=== PATIENT | male | born 1935 | race Caucasian/White ===

== ENCOUNTER 2016-10-03 11:56 | Day surgery (SDC) | payer MEDICARE, MEDICAID ==
[~2016-10-03] VITALS: Ht 152.4 cm; Wt 50.0 kg
[~2016-10-03 11:56] MED LIST: Acetaminophen PO; CALC-756 PO; CHOL100043 PO; METH850P PO; NYST15CR TP; PROP1DRO BOTH_EYES; SENN-133 PO; Sodium Chloride LOK Flush 10 mL Syringe IV PRN; fentaNYL-PF 50 mCg/mL 2 mL Inj IVPUSH PRN
[2016-10-03 12:20] VITALS: BP 141/73; PULSE 91; RESP 14; O2SAT 98
[2016-10-03] MEDS: 0.9% Sodium Chloride 1,000 ML IV PRN ×2 (13:06→13:27)
[2016-10-03 13:39] VITALS: BP 118/64; PULSE 76; RESP 15; O2SAT 99
[2016-10-03 13:48] VITALS: BP 109/64; PULSE 67; RESP 15; O2SAT 95
--- NOTE | 2016-10-03 14:02 | ENDO ---
[address] [address] ENDOSCOPY PROCEDURE PATIENT: JENNIFER BRENNAN : 1935 MR#: [id number] ADMIT: 10/03/2016 JOB ID: [id number] DATE OF SERVICE: 10/03/2016 PRIMARY PROVIDER: Sindy Mcadams DO. PROCEDURE: Colonoscopy. INDICATIONS: An 81-year-old male with a personal history of adenomatous colon polyp, returning for surveillance. EQUIPMENT: [employer]. SEDATION: 1. Versed 2 mg. 2. Fentanyl 37.5 mcg. COMPLICATIONS: None identified. BOWEL PREPARATION: Fair, adequate exam. PROCEDURE INFORMATION: After the risks and benefits were explained, written and verbal informed consent was obtained. The patient was brought into the endoscopy suite and placed into the left lateral decubitus position. Sedation was achieved using the above-stated medications with the addition of oxygen via nasal cannula. A digital rectal examination was accomplished and did not elicit any obvious anorectal pathology. The scope was introduced into the rectum and advanced to the cecum as identified by the appendiceal orifice and ileocecal valve. The scope was slowly withdrawn to carefully examine the mucosa for any defects or lesions. Multiple direct views were made through the dentate line for exclusion of pathology. The colon was decompressed. The scope removed from the patient who tolerated the procedure well. FINDINGS: No significant polyps, mass lesions, or inflammatory features identified throughout. Mild diverticulosis was seen in the left colon. ENDOSCOPIC DIAGNOSES: 1. Diverticulosis. 2. Otherwise visually unremarkable colonoscopy to cecum. RECOMMENDATIONS: Surveillance colonoscopy would not be required at this point. Follow up in GI on a p.r.n. basis.
== END 2016-10-03 23:59 | disposition home or self-care (01) ==
LOC: END 11:56
PROVIDERS: ATTEND Internal Medicine Gastroenterology
DX: Z12.11 Encounter for screening for malignant neoplasm of colon (principal); K57.30 Diverticulosis of large intestine without perforation or abscess without bleeding; Z86.010 Personal history of colon polyps; K21.9 Gastro-esophageal reflux disease without esophagitis; M81.0 Age-related osteoporosis without current pathological fracture; E55.9 Vitamin D deficiency, unspecified; M25.552 Pain in left hip; M40.209 Unspecified kyphosis, site unspecified; H40.9 Unspecified glaucoma; Z87.891 Personal history of nicotine dependence
CPT/HCPCS: G0105; G0500; J2250; J3010; J7030

== ENCOUNTER 2017-03-03 10:58 | Inpatient (IN) | payer MEDICARE, MEDICAID ==
[~2017-03-03] VITALS: Ht 152.4 cm; Wt 50.3 kg
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
[~2017-03-03 10:58] MED LIST changes: -Sodium Chloride LOK Flush 10 mL Syringe IV PRN; -fentaNYL-PF 50 mCg/mL 2 mL Inj IVPUSH PRN
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
[2017-03-03 11:25] LABS: BASOPHILS % (AUTO) 0.9 % (0-3); EOSINOPHILS % (AUTO) 1.6 % (0-5); MONOCYTES % (AUTO) 5.9 % (4-12); Mean Corpuscular Hemoglobin 31.4 pg (27.0-35.0); Mean Corpuscular Volume 97.2 fL (81-100); Platelet Count 242 bil/L (150-400)
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
[2017-03-03 11:40] LABS: INR 0.94 ratio
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
--- NOTE | 2017-03-03 12:01 | ABG ---
DateTimeAnalyzed 11:51:52 -_ pH ____7.377 - 7.350 7.450 pCO2 ___35.4__ -mmHg 35.0 45.0 pO2 121 -mmHg 69.0 116 HCO3- ___20.8__ -mmol/L 22.0 26.0 ABE ___-4.0__ -mmol/L -2.0 2.0 tHb ___11.9__ -g/dL 12.0 18.0 O2Hb ___98.7__ -% COHb ____1.6__ -% 0.0 1.5 MetHb ____0.0__ -% 0.4 1.5 FIO2 __100.0__ -% Drawn By rs - Date/Time Notified____ 12:01:00 -_ Oxygen Device 1 NON RE-JESIKA - Notified By rs - Notified Whom __OKELLEY - K+ ____4.3__ -mmol/L 3.5 5.0
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
[2017-03-03 12:05] LABS: Magnesium 2.3 mg/dL (1.6-2.6)
[2017-03-03] MEDS ORDERED: Ondansetron 2 mg/mL 2 mL Inj IVPUSH PRN ×2 (12:30→12:50)
[2017-03-03] MEDS ORDERED: Lactated Ringer's 1,000 ML IV SCH (12:30)
[2017-03-03] MEDS ORDERED: Polyethylene Glycol (PEG) 17 Gm Powder PO PRN (12:50)
[2017-03-03] MEDS ORDERED: Alum-Mag Hydrox-Simeth 30 mL Suspension PO PRN (12:50)
--- NOTE | 2017-03-03 13:14 | DRSVH ---
PROCEDURE: X-RAY CHEST ONE VIEW, PORTABLE ([id number]) INDICATIONS: 81 year-old male with chest tube placement. TECHNIQUE: One view of the chest was acquired. COMPARISON: [facility], CT, CT CHEST ABD PELVIS W CON, 03/03/2017, 11:18. [facility], CR, XR CHEST 1VW (PORTABLE), 03/03/2017, 11:07. [facility], CR, XR CHEST 1VW (P ORTABLE), 03/03/2017, 10:39. [facility], CR, XR CHEST 1VW (PORTABLE), 10/30/2015, 17:08. FINDINGS: Surgical changes and devices: New right pleural drain is present. Lungs and pleura: There is residual small right apical pneumothorax. No pleural effusions. Lungs are clear. Mediastinum: Mediastinal contours appear normal. Heart size is normal. There is aortic atheroscler osis. Bones and chest wall: No suspicious bony lesions. Overlying soft tissues appear unremarkable. IMPRESSION: Residual small right apical pneumothorax, status post interval right chest tube placement . Dictated by: Georges Daly M.D. on 03/03/2017 at 13:11 Approved by: Georges Daly M.D. on 03/03/2017 at 13:13
[2017-03-03 13:50] VITALS: PULSE 86
--- NOTE | 2017-03-03 13:53 | NUR ---
Admission Pt arrived on the unit at 1340. Brought by ED staff and was transferred to the bed from [facility] via slide board. Chest tube in on R side, on low continuous suction. Pt reports sternal pain "5/10" and is requesting tylenol. Alert and oriented 3. Niece is present at the bedside.
[2017-03-03 14:13] VITALS: BP 137/67; PULSE 89; RESP 13; O2SAT 99
[2017-03-03 14:43] LABS: APPEARANCE,URINE HAZY (CLEAR,HAZY); COLOR,URINE YELLOW (YELLOW); OCCULT BLOOD,URINE LARGE (NEGATIVE); PH,URINE 6.5 (5.0-8.0); UROBILINOGEN,URINE NORMAL (NORMAL)
[2017-03-03] MEDS: D5 0.45% NaCl + KCl 20 mEq/L 1,000 ML IV SCH (15:36)
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
[2017-03-03 16:47] VITALS: BP 117/80; PULSE 90; RESP 18; O2SAT 89
[2017-03-03] MEDS: HYDROcodone-APAP 5-325 mg Tablet PO PRN (17:06)
[2017-03-03 19:37] VITALS: BP 133/69; PULSE 74; RESP 20; O2SAT 100
[2017-03-03 20:00] VITALS: PULSE 76
[2017-03-03] MEDS ORDERED: [UNRECOGNIZED DRUG - OTHER] PO SCH (20:30)
[2017-03-03] MEDS ORDERED: METHYLCELLULOSE PO SCH (20:30)
--- NOTE | 2017-03-03 21:56 | NUR ---
Anxiety Pt anxious, often referring to the discomfort to his right chest. Pt given 2mg of Morphine IV push and receiving slight relief. Pt reminded of the type of procedure he had and that intervals for pain medication was q4h. Non pharmacological methods to relieve pain and discomfort.
[2017-03-04] VITALS (9 sets, daily range): BP systolic 109–149; BP diastolic 55–69; PULSE 71–83; RESP 16–24; O2SAT 96–100
[2017-03-04 03:29] LABS: Mean Corpuscular Hemoglobin 31.4 pg (27.0-35.0); Mean Corpuscular Volume 97.2 fL (81-100)
[2017-03-04] MEDS: D5 0.45% NaCl + KCl 20 mEq/L 1,000 ML IV SCH (05:16)
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
--- NOTE | 2017-03-04 08:18 | DRSVH ---
PROCEDURE: X-RAY CHEST ONE VIEW, PORTABLE ([id number]) INDICATIONS: ptx TECHNIQUE: One view of the chest was acquired. COMPARISON: [facility], CR, XR CHEST 1VW (PORTABLE), 03/03/2017, 12:43. FINDINGS: Surgical changes and devices: Right-sided chest tube appears similar in position. Lungs and pleura: No definite residual pneumothorax identified. No pleural effusions. There are a few medial linear opacities in the lung bases likely representing atelectasis. Mediastinum: Mediastinal contours appear unchanged. Heart size is normal. Bones and chest wall: No suspicious bony lesions. There is a small amount of subcutaneous emphysema again noted in the right chest wall. IMPRESSION: 1. No definite residual pneumothorax identified. Dictated by: Kumar Shipley M.D. on 03/04/2017 at 8:14 Approved by: Kumar Shipley M.D. on 03/04/2017 at 8:16
[2017-03-04] MEDS: HYDROcodone-APAP 5-325 mg Tablet PO PRN ×3 (08:59→23:30)
[2017-03-04] MEDS: Artificial Tears 15 mL Ophthalmic Solution BOTH_EYES SCH (09:09)
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
--- NOTE | 2017-03-04 18:00 | NUR ---
Resp Status/Chest tube. Cardiac: Pt reports right sided chest pain, Tele: SR 70-80 Resp: Pt denies SOB, on 13L non-rebreather mask at start of shift. Titrated down this AM, pt able to maintain sats on NC, SPO2 mid 90s on 4L NC, pt only sats 90-91% on 3L, so kept on 4L NC. Pt having significant pain with cough. Importance of coughing reiterated to pt. Pt medicated for pain. Incentive spirometer at bedside. GI/: Pt denies N/V, pt voiding frequently in small amounts using urinal. Neuro: A&Ox3, WEINSTEIN discussed getting up in chair for meals today, pt reports he would like to start getting up in a chair tomorrow when he is hurting less.
[2017-03-05] VITALS (8 sets, daily range): BP systolic 95–159; BP diastolic 45–72; PULSE 67–98; RESP 16–20; O2SAT 95–99
[2017-03-05 04:01] LABS: BASOPHILS % (AUTO) 0.4 % (0-3); EOSINOPHILS % (AUTO) 3.3 % (0-5); MONOCYTES % (AUTO) 6.1 % (4-12); Mean Corpuscular Hemoglobin 30.8 pg (27.0-35.0); Mean Corpuscular Volume 97.6 fL (81-100); NEUTROPHILS % (AUTO) 80.9 % (40-74); Platelet Count 125 bil/L (150-400)
[2017-03-05 04:33] LABS: Phosphorus 1.9 mg/dL (2.5-4.9)
--- NOTE | 2017-03-05 05:50 | NUR ---
Pain/sats C/o right sided chest pain, particularly at chest tube insert site. Given [place], with IV morphine for breakthrough pain. States this is effective. Chest tube to low suction and draining sero-sanguinous drainage (80 mls this shift). Tele has been sinus rhythm in 80s. Declines getting out of bed tonight. Bed alarm on for safety. Encouraging incentive spirometer frequently.
--- NOTE | 2017-03-05 08:12 | DRSVH ---
PROCEDURE: X-RAY CHEST ONE VIEW, PORTABLE ([id number]) INDICATIONS: Traumatic pneumothorax s/p chest tube TECHNIQUE: One view of the chest was acquired. COMPARISON: Located [facility], CR, XR CHEST 1VW (PORTABLE), 03/04/2017, 5:12. FINDINGS: Surgical changes and devices: Right chest tube. Lungs and pleura: Minimal atelectasis otherwise the lungs are clear. No pneumothoraces. Mediastinum: Mediastinal contours appear normal. Heart size is normal. Bones and chest wall: No suspicious bony lesions. Overlying soft tissues appear unremarkable. IMPRESSION: No radiographic evidence of pneumothorax. Stable right chest tube. Dictated by: Roger Wade M.D. on 03/05/2017 at 8:09 Approved by: Roger Wade M.D. on 03/05/2017 at 8:10
[2017-03-05] MEDS: Artificial Tears 15 mL Ophthalmic Solution BOTH_EYES SCH (09:17)
[2017-03-05] MEDS: HYDROcodone-APAP 5-325 mg Tablet PO PRN ×3 (09:17→21:03)
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
--- NOTE | 2017-03-05 17:14 | NUR ---
Pain/Swallow Eval Cardiac: Pt reports chest pain with cough or activity. Tele: SR 70-80s, up to 130 with activity. Resp: C/o right sided chest pain with deep inspiration and cough. encouraged use of incentive spirometer. Pt maintaining SPO2 mid 90s on 3L NC. Pt medicated for pain to allow for easier time deep breathing and coughing. GI/: Pt denies N/V, Pt encouraged to take PO fluids. Not much urine output this shift. UA sent to lab. Pt noted coughing for the first time following drinking thin liquids this afternoon. Speech therapy ordered, diet changed for swallow safety. Neuro: A&Ox3, WEINSTEIN.
--- NOTE | 2017-03-05 17:19 | NUR ---
Evaluation completed. Please go to "Notes" then click on "Assessments and Notes" (bottom left corner of screen). Then select appropriate discipline tab on top of screen.
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
[2017-03-06 01:13] LABS: Vitamin D, 25-Hydroxy 22.8 ng/mL (30.0-100.0)
[2017-03-06 03:50] VITALS: BP 162/75; PULSE 83; RESP 16; O2SAT 96
[2017-03-06] MEDS: HYDROcodone-APAP 5-325 mg Tablet PO PRN ×4 (03:55→23:20)
[2017-03-06 04:18] LABS: BASOPHILS % (AUTO) 0.5 % (0-3); EOSINOPHILS % (AUTO) 3.6 % (0-5); MONOCYTES % (AUTO) 7.4 % (4-12); Mean Corpuscular Volume 97.8 fL (81-100); NEUTROPHILS % (AUTO) 76.5 % (40-74); Platelet Count 115 bil/L (150-400)
--- NOTE | 2017-03-06 06:50 | NUR ---
Pain/Activity Pt reports right side chest pain w/ cough/deep breaths/activity. Given PRN [place] w/ good effect until this morning when pt had increased activity as he had CXR done and was motivated to move and turn in bed for assessment on his own. Pt also had some increased coughing after that and was given Morphine and pillow to hug when coughing. Pt fell asleep after morphine admin. Pt encouraged to maintain good pain control as he is reluctant to cough/deep breath, also encouraged to use IS more frequently. Pt continues on 3L NC and sats mid 90s. Tele SR 80s.
[2017-03-06 08:00] VITALS: BP 118/64; PULSE 80; RESP 20; O2SAT 96
[2017-03-06] MEDS: Artificial Tears 15 mL Ophthalmic Solution BOTH_EYES SCH (08:17)
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
[2017-03-06 10:24] VITALS: PULSE 84
--- NOTE | 2017-03-06 10:30 | NUR ---
Transfer: Pt transferred to [facility] rm 1007. Pt concerned about missing wallet, phone call to niece verified that family has wallet. Chest tube with scant output, set to water seal. VSS, tele SR, 3L NC. Report called to jonny Godoy ongoing.
[2017-03-06 10:39] VITALS: BP 140/69; PULSE 92; RESP 20; O2SAT 87
--- NOTE | 2017-03-06 10:40 | NUR ---
[place] [facility] [place] [facility] with all belongings; chapin is with his niece confirmed this morning. A&OX4 although seems forgetful at times and some possible slight confusion at times. Some statements do not make sense. VS stable, 95% on 2L NC. 87% on RA. Chest tube with scant SS fluid on waterseal. dressing C/D/I. Splinting chest with pillow as needed to cough. Encouraged to deep breath and cough and use IS X10hr. Alexandra bed alarm in use. CPOx to be placed on and in use. IV Left AC patent and flushed. Glasses on, phone in hand, bible on table phone charge on table. Care continues
[2017-03-06 16:56] VITALS: BP 117/67; PULSE 93; RESP 18; O2SAT 90
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
[2017-03-06 20:19] VITALS: BP 133/67; PULSE 73; RESP 18; O2SAT 90
--- NOTE | 2017-03-06 23:53 | NUR ---
Transfer of care Patient c/o difficulty coughing d/t pain. Medication administered and pillow provided to splint cough. Chest tube water sealed. All care reported to oncoming RN.
[2017-03-07] VITALS (8 sets, daily range): BP systolic 112–159; BP diastolic 57–78; PULSE 75–97; RESP 16–20; O2SAT 90–94
--- NOTE | 2017-03-07 07:46 | PCM.PNSURG ---
Subjective Date of Service: Mar 07, 2017 Visit Information: Reason for Visit R Pneumothorax/Syncope Surgery/Surgery Date Post-Op Day # Date of Admission: Mar 03, 2017 at 12:16 Hospital Day # Subjective: No acute overnight events Patient continues to report sternal pain, limiting his ability to cough and breath deeply R thoracic cage/chest tube site pain less severe Has no fevers States he feels likely he is able to breath normally without issue when at rest No other complaints Objective Vital Sign- Last 8 Hours Date Time Temp Pulse Resp B/P Pulse Ox O2 Delivery O2 Flow Rate FiO2 03/07/17 05:22 89 03/07/17 04:45 36.7 86 16 112/59 91 Room Air 03/07/17 00:25 36.9 92 18 151/57 90 Room Air 03/07/17 00:02 Supplement Oxygen Intake and Output- Last 8 Hour 03/07/17 Cumulative From/Thru 07:00 03/03/17 12:55 - 03/07/17 04:45 Intake Total 0 ml 3060 ml Output Total 1488 ml Balance 0 ml 1572 ml Intake Oral 1510 ml IV Total 0 ml 1550 ml Output Urine Total 1400 ml Chest Tube Drainage Total 88 ml # Voids 3 # Bowel Movements 0 General: Alert, Cooperative, No Acute Distress Neck: Supple Lungs: Other (Diminished air movement bilaterally without adventious sounds. Wet sounding, nonproductive cough is very weak. Chest tube without significant drainage, no air leak. Midline sternal tenderness. ) Abdomen: Benign, Soft, Non-tender, Non-distended Result Diagram: 03/06/17 0410 03/07/17 0454 Assessment & Plan Impression 81M with traumatic pneumothorax s/p chest tube placement. His air leak has resolved but there appears to be a recurrent small apical ptx on this mornings CXR (though final read is pending). Problems: Plan - Continue chest tube to water seal - Repeat CXR at noon to ensure no progression of pneumothorax - Continue supplemental O2 - Nurse and RT driven pulmonary hygiene: The patient needs to ambulate at least TID, sit upright in a chair during the day, and use his incentive spirometer 10x /hr. - Primary team should consider more aggressive pain control to promote pulmonary hygiene - Surgery will continue to follow along VTE Prophylaxis: Sub-Q Heparin (Unfractionated) Resuscitation Status: CPR: Attempt Resuscitation Constantine Garcia MD Mar 07, 2017 07:46
[2017-03-07] MEDS: HYDROcodone-APAP 5-325 mg Tablet PO PRN ×3 (08:06→18:01)
[2017-03-07] MEDS: Artificial Tears 15 mL Ophthalmic Solution BOTH_EYES SCH (08:08)
--- NOTE | 2017-03-07 09:02 | DRSVH ---
PROCEDURE: X-RAY CHEST ONE VIEW, PORTABLE ([id number]) INDICATIONS: S/p chest tube to water seal TECHNIQUE: One view of the chest was acquired. COMPARISON: [facility], CR, XR CHEST 1VW (PORTABLE), 03/06/2017, 3:33. [facility], CR, XR CHEST 1VW (PORTABLE), 03/05/2017, 5:12. [facility], CR, XR CHEST 1VW (FABIAN BLE), 03/04/2017, 5:12. FINDINGS: Surgical changes and devices: Right-sided chest tube is present. Lungs and pleura: No pleural effusions. Small right pneumothorax is present. Lung volumes are low. C oarse bilateral pulmonary densities are unchanged. Mediastinum: Mediastinal contours appear normal. Heart size is normal. Bones and chest wall: No suspicious bony lesions. Overlying soft tissues appear unremarkable. IMPRESSION: 1. Small right pneumothorax. Dictated by: Marine Stevenson M.D. on 03/07/2017 at 8:59 Approved by: Marine Stevenson M.D. on 03/07/2017 at 9:00
--- NOTE | 2017-03-07 12:32 | DRSVH ---
PROCEDURE: X-RAY CHEST ONE VIEW, PORTABLE ([id number]) INDICATIONS: Chest tube to water seal with increased ptx TECHNIQUE: One view of the chest was acquired. COMPARISON: [facility], CR, XR CHEST 1VW (PORTABLE), 03/07/2017, 5:41. [facility], CR, XR CHEST 1VW (PORTABLE), 03/06/2017, 3:33. [facility], CR, XR CHEST 1VW (FABIAN BLE), 03/05/2017, 5:12. FINDINGS: Surgical changes and devices: Right-sided chest tube. Lungs and pleura: No pleural effusions. The right pneumothorax has increased in size, but remains sm all. Mild patchy left basilar airspace opacity. Mediastinum: Mediastinal contours appear normal. Heart size is normal. Bones and chest wall: No suspicious bony lesions. Overlying soft tissues appear unremarkable. IMPRESSION: Increased, small right pneumothorax. Mild left basilar atelectasis versus pneumonia. Dictated by: Marine Stevenson M.D. on 03/07/2017 at 12:30 Approved by: Marine Stevenson M.D. on 03/07/2017 at 12:30
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
--- NOTE | 2017-03-07 17:49 | NUR ---
Social Work- Continued D/C Planning Data: EMR reviewed. Pt is on day 4 of hospitalization. Pt discussed in multidisciplinary rounds. Pt continues to have chest tube. Pt worked with PT today, ambulated 195 feet but recommended SNF. No SNF orders received at this time. SW will reach out to pt's niece tomorrow regarding d/c. No changes in SW status today. SW will continue to follow. Assessment: Pt who is independent at baseline. Plan: PT recommending SNF but pt is likely to progress. SW will reach out to pt's niece tomorrow regarding d/c. No changes in SW status today. SW will continue to follow. Margie Hwang MSW
[2017-03-07] MEDS: Calcium Carbonate (Oyster Shell) 500 mg Tablet PO SCH (20:30)
[2017-03-07] MEDS: Heparin 5,000 Unit/mL Inj SUBQ SCH (21:48)
[2017-03-08 00:30] VITALS: BP 151/75; PULSE 82; RESP 18; O2SAT 96
--- NOTE | 2017-03-08 03:40 | NUR ---
RESP; v.s.s. Chest tube to wall suction. No c/o resp. distress or pain. Slept well during the night.
--- NOTE | 2017-03-08 04:15 | NUR ---
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
[2017-03-08 05:38] VITALS: PULSE 89
[2017-03-08 07:49] VITALS: BP 159/76; PULSE 85; RESP 20; O2SAT 96
--- NOTE | 2017-03-08 08:21 | DRSVH ---
PROCEDURE: X-RAY CHEST ONE VIEW, PORTABLE ([id number]) INDICATIONS: Traumatic pneumothorax with CT in place TECHNIQUE: One view of the chest was acquired. COMPARISON: [facility], CR, XR CHEST 1VW (PORTABLE), 03/07/2017, 11:51. FINDINGS: Surgical changes and devices: Right chest tube. Lungs and pleura: Improved small right apical pneumothorax. Small left pleural effusion. Left basila r atelectasis otherwise the lungs are clear. Mediastinum: Mediastinal contours appear normal. Heart size is normal. Bones and chest wall: No suspicious bony lesions. Overlying soft tissues appear unremarkable. IMPRESSION: 1. Improved small right apical pneumothorax with right chest tube. 2. Small left pleural effusion with left basilar atelectasis, early infiltrate, or less likely aspira tion. Dictated by: Roger Wade M.D. on 03/08/2017 at 8:18 Approved by: Roger Wade M.D. on 03/08/2017 at 8:20
[2017-03-08] MEDS: Heparin 5,000 Unit/mL Inj SUBQ SCH ×2 (08:30→19:37)
[2017-03-08] MEDS: Artificial Tears 15 mL Ophthalmic Solution BOTH_EYES SCH (08:30)
[2017-03-08] MEDS: Calcium Carbonate (Oyster Shell) 500 mg Tablet PO SCH ×3 (08:31→16:30)
[2017-03-08] MEDS: HYDROcodone-APAP 5-325 mg Tablet PO PRN ×2 (08:31→16:30)
--- NOTE | 2017-03-08 10:15 | PCM.PNSURG ---
Subjective Date of Service: Mar 08, 2017 Date of Service: Mar 08, 2017 Visit Information: Reason for Visit R Pneumothorax/Syncope Surgery/Surgery Date Post-Op Day # Date of Admission: Mar 03, 2017 at 12:16 Hospital Day # 4 Subjective: Denies SOB at rest. Walked x 3 yesterday. Unable to breath deep or cough secondary to sternal pain. Pain Management: Good Pain Control Postop Activity: Ambulating in [place] Objective Vital Sign- Last 8 Hours Date Time Temp Pulse Resp B/P Pulse Ox O2 Delivery O2 Flow Rate FiO2 03/08/17 07:49 37.1 85 20 159/76 96 Nasal Cannula 2.50 03/08/17 05:38 89 Intake and Output- Last 8 Hour 03/08/17 Cumulative From/Thru 07:00 03/03/17 12:55 - 03/08/17 06:57 Intake Total 100 ml 3396 ml Output Total 650 ml 2433 ml Balance -550 ml 963 ml Intake Oral 100 ml 1846 ml IV Total 1550 ml Output Urine Total 650 ml 2335 ml Chest Tube Drainage Total 0 ml 98 ml # Voids 3 # Bowel Movements 0 0 General: Alert Lungs: Other (Decreased breath sounds bilaterally. Wet sounding, nonproductive cough is very weak. Chest tube without significant drainage, no air leak seen.) Heart: Exam Unremarkable Chest: Sternal TTP Abdomen: Soft Extremities: Thigh&Calf Soft/Nontender Neuro: Normal Speech Result Diagram: 03/06/17 0410 03/07/17 0454 Diagnostics: [place]. [address] PATIENT NAME: JENNIFER BRENNAN : 1935 GENDER: Ron GAINES EXAM DATE: 03/08/2017 5:22 ORDERED FROM: [facility] ORDERING PHYSICIAN: BELKIS OWEN CC: OSCAR DAVIS CONTRAST: READING STATION ID: [id number] mGy: PROCEDURE: X-RAY CHEST ONE VIEW, PORTABLE ([id number]) INDICATIONS: Traumatic pneumothorax with CT in place TECHNIQUE: One view of the chest was acquired. COMPARISON: [facility], CR, XR CHEST 1VW (PORTABLE), 03/07/2017, 11: 51. FINDINGS: Surgical changes and devices: Right chest tube. Lungs and pleura: Improved small right apical pneumothorax. Small left pleural effusion. Left basilar atelectasis otherwise the lungs are clear. Mediastinum: Mediastinal contours appear normal. Heart size is normal. Bones and chest wall: No suspicious bony lesions. Overlying soft tissues appear unremarkable. IMPRESSION: 1. Improved small right apical pneumothorax with right chest tube. 2. Small left pleural effusion with left basilar atelectasis, early infiltrate, or less likely aspiration. Dictated by: Roger Wade M.D. on 03/08/2017 at 8:18 Approved by: Roger Wade M.D. on 03/08/2017 at 8:20 Assessment & Plan Impression Primary Diagnosis: 1. Traumatic pneumothorax-Stable status post placement of right chest tube 2. Fracture of sternum and right sixth rib-Stable Other Medical History: Osteoporosis History of hip fracture 2 History of vertebral compression fracture Glaucoma Problems: Plan 1. Continue ambulation daily & incentive spirometry. 2. Continue chest suction today. 3. Repeat chest x-ray tomorrow 4. Consider water seal tomorrow? VTE Prophylaxis: Sub-Q Heparin (Unfractionated) Resuscitation Status: CPR: Attempt Resuscitation Kimo Lora PA-C Mar 08, 2017 10:15
[2017-03-08 10:30] VITALS: PULSE 77
--- NOTE | 2017-03-08 11:23 | DRSVH ---
[facility] [address] [place] [address] Echocardiogram Report Name: JENNIFER BRENNAN Jerad e: 03/08/2017 Height: 60 in Hospital Exam Location: [facility] Weight: 118 lb Gender: Male BSA: 1.5 m2 : 1935 Age: 81 yrs BP: 159/76 mmHg Reason For Study: Syncope Ordering Physician: HOSPITALIST [facility] Performed By: [facility] Staff Referring Physician: [facility] Interpretation Summary The ejection fraction is estimated to be 60-65%. The tricuspid valve leaflets are thickened and/or calcified, but open well. There is mild tricuspid regurgitation. Right ventricular systolic pressure is estimated to be 30 mmHg plus the clinically estimated CVP which cannot be estimated on this exam. The ascending aorta is mildly enlarged. Echogenic structure seen in the right atria for multiple views, consider prominent eustachian valve Recommend TREV Procedure: A two-dimensional transthoracic echocardiogram with color flow and Doppler was performed. The study quality was technically difficult. There is no prior echocardiogram noted for this patient. Images from the parasternal window were difficult to obtain and are suboptimal in quality. The subcostal views were not obtained due to no image available.. The patient was in normal sinus rhythm during the exam. Left Ventricle: The left ventricle is normal in size, wall thickness, and systolic function without any focal wall motion abnormalities. A false chord is noted (normal variant). The ejection fraction is estimated to be 60-65%. Left ventricular wall motion is normal. Assessment of diastolic parameters indicates normal left ventricular diastolic function and normal filling pressures. Right Ventricle: The right ventricle is normal in size and function. Atria: The left atrial size is normal. Echogenic structure seen in the right atria for multiple views, consider prominent eustachian valve Recommend TREV. The interatrial septum is intact with no evidence for an atrial septal defect. Mitral Valve: The mitral valve leaflets appear thickened, but open well. There is no mitral regurgitation noted. Aortic Valve: The aortic valve opens well. The aortic valve is moderately calcified. No aortic regurgitation is present. Tricuspid Valve: The tricuspid valve leaflets are thickened and/or calcified, but open well. There is mild tricuspid regurgitation. Right ventricular systolic pressure is estimated to be 30 mmHg plus the clinically estimated CVP which cannot be estimated on this exam. Pulmonic Valve: The pulmonic valve is not well seen, but is grossly normal. There is trace pulmonic regurgitation. Great Vessels: The aortic root is mildly dilated. The ascending aorta is mildly enlarged. The pulmonary artery is not well visualized, but is probably normal size. The inferior vena cava was not well visualized. Pericardium/ Pleura There is no pericardial effusion. There is no pleural effusion. MMode/2D Measurements & Calculations LVIDd: 3.3 cm RA long axis LVOT diam LVIDs: 1.2 cm LA A2 area: 10.4 cm FS: 64.3 % LA A4 area: 10.8 cm RA area AoV Opening IVSd: 0.92 cm LA length (vol): 3.7 cm LVPWd: 0.69 cm LA vol: 26.1 ml : 9.7 cm Ao root diam LA vol index RA vol : 21.3 ml asc Aorta : 17.5 ml/m2 RA Diam: 3.5 cm : 14.3 mm2 LV martell. diameter/BSA LV sys. diameter/BSA RVD1 (basal) RVD2 (mid) (cm/m^2): 2.2 (cm/m^2): 0.79 : 2.4 cm Doppler Measurements & Calculations Ao V2 max MV E max jaya MV E/A: 0.65 TR max jaya : 112.3 cm/sec : 58.3 cm/sec Med Peak E' Jaya : 285.3 cm/sec Ao max PG MV A max jaya TR max PG : 5.0 mmHg : 89.2 cm/sec E/E' med: 8.0 : 29.7 mmHg Ao mean PG MV P1/2t: 56.1 msec Lat Peak E' Jaya PA V2 max : 118.1 cm/sec LVOT Max Jaya E/E' lat: 8.2 PA mean PG : 122.8 cm/sec E/e' average: 8.1 : 3.2 mmHg CEDRICK(I,D): 3.7 cm sev ratio: 1.2 MV dec time MV P1/2t max jaya Ao V2 mean LV V1 max PG : 0.19 sec : 83.2 cm/sec Ao V2 VTI: 19.2 cmLV V1 VTI MVA(P1/2t): 3.9 cm2 : 22.4 cm CEDRICK(V,D): 3.5 cm2 PA V2 mean CEDRICK indexed to BSA : 84.6 cm/sec (cm^2/m^2): 2.5 PA pr(Accel) : 52.0 mmHg Electronically signed by: Guicho Hermosillo on Reading Physician:03/08/2017 11:22 AM
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
--- NOTE | 2017-03-08 16:22 | NUR ---
oxygen pt 94-96% on RA today, right lung sounds slightly more clear today, pt seems in better spirits, he is usually cooperative with ambulating, CT to 20cm sx, only rare air leak noted.
[2017-03-08 17:23] VITALS: BP 129/79; PULSE 91; RESP 18; O2SAT 86
[2017-03-08 20:42] VITALS: BP 128/74; PULSE 77; RESP 16; O2SAT 93
[2017-03-09 00:28] VITALS: BP 185/78; PULSE 85; RESP 16; O2SAT 94
[2017-03-09] MEDS: HYDROcodone-APAP 5-325 mg Tablet PO PRN ×4 (00:38→18:36)
--- NOTE | 2017-03-09 03:46 | NUR ---
Chest tube Pt. has right chest tube to suction putting out small amount of serous fluid. Dressing c/d/i. No air leak noted. Will continue to monitor.
[2017-03-09 05:10] VITALS: BP 134/72; PULSE 70; RESP 16; O2SAT 93
[2017-03-09 05:58] VITALS: PULSE 70
--- NOTE | 2017-03-09 08:40 | DRSVH ---
PROCEDURE: X-RAY CHEST ONE VIEW, PORTABLE ([id number]) INDICATIONS: Right PTX TECHNIQUE: One view of the chest was acquired. COMPARISON: [facility], CR, XR CHEST 1VW (PORTABLE), 03/08/2017, 5:22. [facility], CR, XR CHEST 1VW (PORTABLE), 03/07/2017, 11:51. FINDINGS: Surgical changes and devices: Right pleural drain in stable position, small apical pneumothorax is pr esent measuring up to 9 mm.. Lungs and pleura: No pleural effusions or pneumothorax. Lungs are mildly edematous. Mediastinum: Mediastinal contours appear normal. Heart size is normal. Bones and chest wall: No suspicious bony lesions. Overlying soft tissues appear unremarkable. IMPRESSION: Stable appearance of the chest, right pleural drain, 9 mm residual right apical pneumotho rax. Dictated by: Kimo Cleary M.D. on 03/09/2017 at 8:37 Approved by: Kimo Cleary M.D. on 03/09/2017 at 8:38
[2017-03-09 09:01] VITALS: PULSE 107
[2017-03-09] MEDS: Heparin 5,000 Unit/mL Inj SUBQ SCH ×2 (09:08→20:14)
[2017-03-09] MEDS: Calcium Carbonate (Oyster Shell) 500 mg Tablet PO SCH ×3 (09:08→18:36)
[2017-03-09] MEDS: Artificial Tears 15 mL Ophthalmic Solution BOTH_EYES SCH (09:08)
[2017-03-09 09:36] VITALS: BP 118/61; PULSE 89; RESP 19; O2SAT 92
[2017-03-09] MEDS ORDERED: Sodium Biphos-Phos 133 mL Enema RECTAL PRN (12:40)
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
--- NOTE | 2017-03-09 14:43 | PROG NOTE ---
[address] [address] PROGRESS NOTE PATIENT: JENNIFER BRENNAN : 1935 MR#: [id number] ADMIT: 03/03/2017 JOB ID: [id number] DATE: 03/09/2017 SUBJECTIVE: The patient's chest tube has no air leak. It has been on suction. I have placed it to water seal. I will order a chest x-ray for tomorrow morning. If his lung stays up, I will remove the chest tube tomorrow.
--- NOTE | 2017-03-09 16:43 | NUR ---
resp pt denies any resp distress, does c/o right side back pain, Vicodin very helpful, ambulates in hallway without dyspnea, right lung sounds little less coarse today, CT to water seal again, sats mid 90s on RA, no air leak seen this shift, but increased amt of serosang draining
[2017-03-09 19:51] VITALS: BP 120/67; PULSE 87; RESP 16; O2SAT 93
--- NOTE | 2017-03-10 04:37 | NUR ---
Respiratory Pt. putting out serosangenous drainage. Chest tube on water seal. Dressing still c/d/i. Pt. ambulated during shift. Will continue to monitor.
[2017-03-10 05:58] VITALS: BP 136/70; RESP 19; O2SAT 93
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
[2017-03-10] MEDS: Artificial Tears 15 mL Ophthalmic Solution BOTH_EYES SCH (08:12)
[2017-03-10] MEDS: Calcium Carbonate (Oyster Shell) 500 mg Tablet PO SCH ×3 (08:12→18:18)
[2017-03-10] MEDS: Heparin 5,000 Unit/mL Inj SUBQ SCH ×2 (08:12→20:53)
[2017-03-10 08:13] VITALS: BP 164/72; PULSE 82; RESP 16; O2SAT 94
--- NOTE | 2017-03-10 10:33 | DRSVH ---
PROCEDURE: X-RAY CHEST ONE VIEW, PORTABLE ([id number]) INDICATIONS: chest tube to water seal TECHNIQUE: One view of the chest was acquired. COMPARISON: [facility], CR, XR CHEST 1VW (PORTABLE), 03/09/2017, 5:46. FINDINGS: Surgical changes and devices: Right thoracostomy tube is unchanged. Lungs and pleura: Small right apical pneumothorax is unchanged when compared with the study dated 02/19 04/07. Mediastinum: Mediastinal contours appear normal. Heart size is normal. Bones and chest wall: No suspicious bony lesions. Overlying soft tissues appear unremarkable. IMPRESSION: Unchanged right apical pneumothorax and thoracostomy tube. Dictated by: Catherine Luis M.D. on 03/10/2017 at 10:30 Approved by: Catherine Luis M.D. on 03/10/2017 at 10:31
--- NOTE | 2017-03-10 14:42 | NUR ---
CHEST TUBE Patients chest tube was d/cd by Dr. Patel. Tip is intact. Dressing is in place. CDI. Patient denies pain, nausea/SOB. Up with SBA and the FWW. Ambulated in the hallway and tolerated activity well. Patient is alert and oriented X 3. Using call light appropriately.
--- NOTE | 2017-03-10 15:24 | PROG NOTE ---
[address] [address] PROGRESS NOTE PATIENT: JENNIFER BRENNAN : 1935 MR#: [id number] ADMIT: 03/03/2017 JOB ID: [id number] DATE: 03/10/2017 He remains stable. Chest x-ray demonstrates no recurrent pneumothorax on water seal. I have removed his chest tube. He tolerated it well.
[2017-03-10] MEDS: HYDROcodone-APAP 5-325 mg Tablet PO PRN ×2 (16:01→20:54)
[2017-03-10 19:45] VITALS: BP 131/71; PULSE 91; RESP 17; O2SAT 91
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
[2017-03-11 04:32] VITALS: BP 149/72; PULSE 93; RESP 16; O2SAT 93
--- NOTE | 2017-03-11 08:02 | PCM.DIMED ---
Discharge Instructions Date of Service Mar 11, 2017 Dates of Hospitalization Mar 03, 2017 at 12:16 Diet Discharge Diet: No restrictions Activity Discharge Activity: No restrictions, Home Health Phyical Therapy (home health physical therapy for training with a new assistive device (walker) and strengthening due to generalized weakness) Call your provider Call your provider for: Fever or Chills, Shortness of breath, Chest pain Patient Instructions Follow-up with PCP in: 1 week Additional Information repeat echocardiogram in one month Rebeca Fan MD Mar 11, 2017 08:02
[2017-03-11] MEDS ORDERED: HYDR-4003 PO (08:05)
[2017-03-11] MEDS ORDERED: Acetaminophen PO (08:05)
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
[2017-03-11] MEDS ORDERED: HYDROcodone-APAP 5-325 mg Tablet PO PRN (08:50)
[2017-03-11] MEDS: Calcium Carbonate (Oyster Shell) 500 mg Tablet PO SCH ×2 (09:06→12:00)
[2017-03-11] MEDS: Artificial Tears 15 mL Ophthalmic Solution BOTH_EYES SCH (09:07)
[2017-03-11] MEDS: Heparin 5,000 Unit/mL Inj SUBQ SCH (09:07)
--- NOTE | 2017-03-11 11:00 | PCM.PNSURG ---
Subjective Date of Service: Mar 11, 2017 Visit Information: Reason for Visit R Pneumothorax/Syncope Surgery/Surgery Date Post-Op Day # Date of Admission: Mar 03, 2017 at 12:16 Hospital Day # Subjective: No acute overnight events Patient reports his pain has improved now that the chest tube is removed Still having some sternal pain Denies difficulty breathing Objective Vital Sign- Last 8 Hours Date Time Temp Pulse Resp B/P Pulse Ox O2 Delivery O2 Flow Rate FiO2 03/11/17 04:32 36.7 93 16 149/72 93 Room Air Intake and Output- Last 8 Hour 03/11/17 Cumulative From/Thru 07:00 03/03/17 12:55 - 03/11/17 04:32 Intake Total 420 ml 6142 ml Output Total 3841 ml Balance 420 ml 2301 ml Intake Oral 420 ml 4592 ml IV Total 1550 ml Output Urine Total 3735 ml Chest Tube Drainage Total 106 ml # Voids 3 12 # Bowel Movements 1 General: Alert, Cooperative Neck: Supple Lungs: Normal Air Movement Chest: Weak cough, poor effort with IS. Mildly tender to palpation over mid sternum Abdomen: Benign Result Diagram: 03/06/17 0410 03/07/17 0454 Assessment & Plan Impression 81M with traumatic right pneumothorax after sustaining a right fractured rib. Chest tube is now removed and patient is maintaining appropriate O2 sats on room air without any respiratory distress. Problems: Plan - No need for CXR today - General surgery to sign off - Please page if any concern for tension physiology or recurrence - Dressing to remain over chest tube site x24 hours, then open to air VTE Prophylaxis: Sub-Q Heparin (Unfractionated) Resuscitation Status: CPR: Attempt Resuscitation Constantine Garcia MD Mar 11, 2017 11:00
--- NOTE | 2017-03-11 11:47 | NUR ---
Social Work- Discharge Data: EMR reviewed. Pt is on day 8 of hospitalization for right pneumothorax, syncope per H&P. Pt to d/c today, discharge orders are active. Pt discussed in multidisciplinary rounds, pt will require FWW at discharge and HHPT. Orders received for both services. SW met with pt at bedside regarding HHPT and DME. HH CHOICE LIST PROVIDED. Pt has no HH preference, SW consulted rotating calendar and made referral to [facility]. T/T Aileen at [facility] regarding referral, Aileen is agreeable and states that pt will be seen on Saturday/Saturday. Aileen confirms that she has all necessary paperwork. T/T Venkat [phone] at [facility] regarding fww delivery. [facility] will not be able to deliver pt's walker today but will be able to deliver it to patient's home tomorrow. SURGERY TECHNICIAN confirmed pt's address and contact phone numbers of pt and his niece Becky and provided this information to [employer] for coordination of delivery. SURGERY TECHNICIAN faxed necessary script and paperwork to [facility] [phone]. Pt has a cane for use at home in addition to residing in a very tiny trailer (20 feet). MD notified of delivery tomorrow, MD is agreeable to pt receiving walker tomorrow and d/c. T/T niece Becky and patient at bedside regarding d/c plan, HH and FWW. Pt and Becky are agreeable. No additional d/c planning needs. Assessment: Pt for whom HHPT is medically necessary Plan: Pt to d/c home with [facility] and his niece to transport via POV. Walker to be delivered to pt's home tomorrow by [facility]. All updated and agreeable to plan. No additional d/c planning needs at this time. Margie Hwang, SURGERY TECHNICIAN
--- NOTE | 2017-03-11 12:47 | NUR ---
Discharge: VSS, no syncopal episodes noted, not on telemetry, RA O2 sats 93%. Up to BR with FWW/SBA, voiding independently, tolerating PO intake well. Home health set up, [employer] to deliver FWW to pt's house tomorrow, pt to use cane at home until FWW delivered. Given care notes r/t hydrocodone, pneumothorax, and rib fractures. 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 IV d/c'd intact. Pt d/c'd home with all personal belongings, niece providing transportation home.
== END 2017-03-11 12:52 | disposition home health service (06) | DRG 166 ==
LOC: SED 10:58 → PCC 12:16 → OSC 03-06 10:31
PROVIDERS: ADMIT Internal Medicine; ATTEND Internal Medicine
PROC: 0B9K30Z Drainage of Right Lung with Drainage Device, Percutaneous Approach (ICD-10-PCS; principal; 2017-03-03)
PROC: 4A033R1 Measurement of Arterial Saturation, Peripheral, Percutaneous Approach (ICD-10-PCS; 2017-03-03)
DX: S27.0XXA Traumatic pneumothorax, initial encounter (principal); J96.01 Acute respiratory failure with hypoxia; S22.43XA Multiple fractures of ribs, bilateral, initial encounter for closed fracture; J90 Pleural effusion, not elsewhere classified; E87.2 Acidosis; S22.22XA Fracture of body of sternum, initial encounter for closed fracture; V59.88XA Occupant (driver) (passenger) of pick-up truck or van injured in other specified transport accidents, initial encounter; M81.0 Age-related osteoporosis without current pathological fracture; R55 Syncope and collapse; D73.5 Infarction of spleen; Y93.89 Activity, other specified; Y92.488 Other paved roadways as the place of occurrence of the external cause; Z87.891 Personal history of nicotine dependence; G31.9 Degenerative disease of nervous system, unspecified; E83.51 Hypocalcemia; R73.9 Hyperglycemia, unspecified